=== PATIENT | female | born 1975 | race Caucasian/White ===

== ENCOUNTER → 2018-06-29 14:13 | Emergency (ER) | payer OTHER ==
[~2018-06-29 14:13] MED LIST: Cyclobenzaprine TAB* 10 MG PO ONE
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
[2018-06-29 17:28] LABS: Urine Appearance Cloudy; Urine Bacteria Absent (Absent); Urine Bilirubin Negative (Negative); Urine Blood Negative (Negative); Urine Color Straw; Urine Glucose Negative (Negative); Urine Ketones Negative (Negative); Urine Nitrite Negative (Negative); Urine Protein Negative (Negative); Urine Red Blood Cell 1+(3-5/hpf) (Absent); Urine Specific Gravity 1.005 (1.010-1.030); Urine Squamous Epithelial Cell Present (Absent); Urine Urobilinogen Negative (Negative); Urine White Blood Cell Trace(0-5/hpf) (Absent)
[2018-06-29 17:44] LABS: Barbiturates Urine Screen Presumptive Positive (None Detect); Benzodiazepine Urine Screen Presumptive Positive (None Detect); Urine Cannabinoids Screen None Detected (None Detect)
[2018-06-29 18:39] LABS: ABS Basophils 0 10^3/ul (0-0.2); ABS Eosinophils 0.5 10^3/ul (0-0.6); ABS Lymphocytes 3.3 10^3/ul (1.0-4.8); ABS Monocytes 0.8 10^3/ul (0-0.8); ABS Neutrophils 5.2 10^3/ul (1.5-7.7); ABS Nucleated RBC 0 10^3/ul; Eosinophil % 4.9 %; Hematocrit 38 % (35-47); Hemoglobin 13.2 g/dl (12.0-16.0); Lymphocyte % 34.1 %; Mean Corpuscular HGB Conc 34 g/dl (31-36); Mean Corpuscular Hemoglobin 28 pg (27-31); Mean Corpuscular Volume 81 fL (80-97); Mean Platelet Volume 7.1 fL (7.4-10.4); Nucleated Red Blood Cells % 0; Platelet Count 450 10^3/ul (150-450); Red Blood Count 4.72 10^6/ul (4.00-5.40); Red Cell Distribution Width 15 % (10.5-15); White Blood Count 9.8 10^3/ul (3.5-10.8)
[2018-06-29 18:44] LABS: INR 0.93 (0.77-1.02)
[2018-06-29 19:01] LABS: ALT 27 U/L (7-52); AST 20 U/L (13-39); Albumin 4.7 g/dL (3.2-5.2); Albumin/Globulin Ratio 1.9 (1-3); Alkaline Phosphatase 78 U/L (34-104); Amylase 52 U/L (29-103); Anion Gap 9 mmol/L (2-11); BUN/Creatinine Ratio 18.2 (8-20); Blood Urea Nitrogen 12 mg/dL (6-24); CO2 Carbon Dioxide 28 mmol/L (22-32); Calcium 9.2 mg/dL (8.6-10.3); Chloride 104 mmol/L (101-111); Creatine Kinase 50 U/L (10-223); EGFR Non-African American 99.2 (>60); Globulin 2.5 g/dL (2-4); Glucose 92 mg/dL (70-100); Potassium 3.6 mmol/L (3.5-5.0); Sodium 141 mmol/L (135-145); Total Protein 7.2 g/dL (6.4-8.9)
[2018-06-29 19:06] LABS: Alcohol < 10 mg/dL (<10); HCG Pregnancy 0.82 mIU/mL
[2018-06-29 21:23] VITALS: BP 146/98
--- NOTE | 2018-07-02 11:10 | PN ---
Progress Note - Progress Note Date of Service: 06/29/18 Note: Urine culture final grew e. coli 10-25,000 This is low colony count. Patient will not be placed on abx at this time
== END | disposition home or self-care (01) ==
LOC: ED 14:13
DX: S16.1XXA Strain of muscle, fascia and tendon at neck level, initial encounter (principal); S06.0X9A Concussion with loss of consciousness of unspecified duration, initial encounter; T14.8XXA Other injury of unspecified body region, initial encounter; Y92.9 Unspecified place or not applicable; V47.5XXA Car driver injured in collision with fixed or stationary object in traffic accident, initial encounter; Y92.89 Other specified places as the place of occurrence of the external cause; F41.9 Anxiety disorder, unspecified
CPT/HCPCS: 36415; 70450; 71046; 72125; 80053; 80307; 80320; 81003; 81015; 82150; 82550; 83605; 83690; 84484; 84702; 85025; 85610; 87077; 87086; 87186; 93005; 99283; A9270-GY; G0480

== ENCOUNTER 2018-07-29 21:01 | Emergency (ER) | payer OTHER ==
[2018-07-29 21:16] VITALS: BP 126/84
--- NOTE | 2018-07-29 21:41 | UC ---
Shoulder Pain HPI - HPI Summary HPI Summary: Patient twisted her left shoulder putting her coat on. she felt a twang of pain in the posterior aspect of the left shoulder. she has good ROM, but painful with ext and int rotation and reaching behind her back. - History of Current Complaint Chief Complaint: UCUpperExtremity Stated Complaint: L ARM PAIN Time Seen by Provider: 07/29/18 21:12 Hx Obtained From: Patient Hx Last Menstrual Period: 07/08/2018 ?: No Onset/Duration: Sudden Onset, Lasting Hours Timing: Constant Severity Initially: Moderate Severity Currently: Moderate Pain Intensity: 5 Character: Throbbing, Stiffness Aggravating Factor(s): Movement, Internal Rotation, External Rotation Alleviating Factor(s): Nothing - Allergies/Home Medications Allergies/Adverse Reactions: Allergies Allergy/AdvReac Type Severity Reaction Status Date / Time influenza virus vaccine tvs Allergy Hives Verified 07/29/18 21:18 (65 yr and up) [From Endorse For A Cause (65yr+)(PF)] Sulfa (Sulfonamide Allergy Hives Verified 07/29/18 21:17 Antibiotics) vaccine adjuvant emulsion Allergy Hives Verified 07/29/18 21:18 [id number].1 [From Cinematiquead (65yr+)(PF)] Home Medications: Home Medications Acetaminophen [Tylenol] 07/29/18 [History] Ibuprofen 200 mg PO 07/29/18 [History] PMH/Surg Hx/FS Hx/Imm Hx Previously Healthy: Yes - Surgical History Surgical History: Yes Surgery Procedure, Year, and Place: gall bladder 2017 - Family History Known Family History: Positive: Other Family History: Breast CA - Social History Alcohol Use: None Substance Use Type: None Smoking Status (MU): Never Smoked Tobacco Review of Systems All Other Systems Reviewed And Are Negative: Yes Constitutional: Positive: Negative Skin: Positive: Negative Eyes: Positive: Negative ENT: Positive: Negative Respiratory: Positive: Negative Cardiovascular: Positive: Negative Gastrointestinal: Positive: Negative Genitourinary: Positive: Negative Motor: Positive: Negative Neurovascular: Positive: Negative Musculoskeletal: Positive: Arthralgia, Decreased ROM, Myalgia Neurological: Positive: Negative Psychological: Positive: Negative Is Patient Immunocompromised?: No Physical Exam Triage Information Reviewed: Yes Appearance: Well-Appearing, Well-Nourished, Pain Distress Vital Signs: Initial Vital Signs Temp 98.1 F 03/23/19 21:05 Pulse 75 07/29/18 21:05 Resp 16 07/29/18 21:05 BP 126/84 07/29/18 21:05 Pulse Ox 97 07/29/18 21:05 Vital Signs Reviewed: Yes Eye Exam: Normal ENT Exam: Normal Dental Exam: Normal Neck exam: Normal Respiratory Exam: Normal Cardiovascular Exam: Normal Abdominal Exam: Normal Musculoskeletal: Positive: Strength Intact, ROM Limited @ - in int rotation do to pain Neurological Exam: Normal Psychological Exam: Normal Skin Exam: Normal Shoulder Course/Dx - Course Course Of Treatment: hx obtained, exam performed ,meds reviewed, sling provided. reviewed conservative managment. If she is not improving, PT or follow up with ortho - Differential Dx/Diagnosis Differential Diagnosis/HQI/PQRI: Rotator Cuff Injury, Sprain, Strain Provider Diagnosis: Rotator cuff injury Discharge - Sign-Out/Discharge Documenting (check all that apply): Patient Departure All imaging exams completed and their final reports reviewed: No Studies - Discharge Plan Condition: Stable Disposition: HOME Patient Education Materials: Rotator Cuff Injury (ED) Referrals: Toshia Law MD [Primary Care Provider] - Ginger Grullon MD [Medical Doctor] - Additional Instructions: 1. use the sling to rest the shoulder 2. Continue with ibuprofen for pain 3. A few times a day, work the arm through Range of motion and easy stretching. 4. If not improving in the next week, follow up with ortho. - Billing Disposition and Condition Condition: STABLE Disposition: Home
== END 2018-07-29 21:58 | disposition home or self-care (01) ==
LOC: UCEAST 21:01
DX: S46.002A Unspecified injury of muscle(s) and tendon(s) of the rotator cuff of left shoulder, initial encounter (principal); Z88.7 Allergy status to serum and vaccine; Z88.2 Allergy status to sulfonamides; X50.0XXA Overexertion from strenuous movement or load, initial encounter; Y93.89 Activity, other specified; Y92.9 Unspecified place or not applicable
CPT/HCPCS: 99212; G0463

== ENCOUNTER 2018-11-30 20:23 | Emergency (ER) | payer OTHER ==
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
[2018-11-30 21:03] LABS: ABS Basophils 0.1 10^3/ul (0-0.2); ABS Eosinophils 0.4 10^3/ul (0-0.6); ABS Lymphocytes 3.5 10^3/ul (1.0-4.8); ABS Neutrophils 6.5 10^3/ul (1.5-7.7); Eosinophil % 3.3 %; Hematocrit 40 % (35-47); Hemoglobin 13.8 g/dL (12.0-16.0); Lymphocyte % 30.3 %; Mean Corpuscular HGB Conc 34 g/dL (31-36); Mean Corpuscular Hemoglobin 28 pg (27-31); Mean Corpuscular Volume 82 fL (80-97); Mean Platelet Volume 7.2 fL (7.4-10.4); Platelet Count 406 10^3/uL (150-450); Red Blood Count 4.89 10^6 /uL (3.70-4.87); Red Cell Distribution Width 13 % (10-15); White Blood Count 11.4 10^3/uL (3.5-10.8)
--- NOTE | 2018-11-30 21:03 | ED ---
HPI Chest Pain - HPI Summary HPI Summary: The patient is a 43 y/o F presenting to [facility] accompanied by with a chief complaint of sudden onset intermittent episodes of left anterior CP starting three days ago. She reports that when the symptoms started, she started to feel unwell while she was attempting to go to the bathroom and had sudden burning and sharp chest pain that radiates into the left arm. Later that night, she had diaphoresis, chills, and a fever, and then she was unable to move her lower extremities. She also has been experiencing generalized weakness. She additionally c/o palpitations, nausea, FELDMAN, left upper back pain, neck pain, and mild ataxia. She denies SOB, abd pain, vomiting, diarrhea, and rash. She notes over the weekend she had cramping in the BLE but that has since resolved. Her pain is currently rated 3/10 in severity. She attempted to use CBD oil to no relief. Moving from supine to erect aggravates her symptoms. Hx of HTN, anxiety. Nonsmoker, rare EtOH, no substance use. PCP is Dr. Law. - History of Current Complaint Chief Complaint: EDChestPainROMI Time Seen by Provider: 11/30/18 20:56 Hx Obtained From: Patient Hx Last Menstrual Period: 07/08/2018 Onset/Duration: Started Days Ago - three, Still Present Timing: Intermittent, Lasting Hours Initial Severity: Mild Current Severity: Moderate Pain Intensity: 3 Pain Scale Used: 0-10 Numeric Chest Pain Location: Left Anterior Chest Pain Radiates: Yes Chest Pain Radiates To:: Arm - left Character: Burning, Sharp/Stabbing Aggravating Factor(s): Movement - from supine to erect Alleviating Factor(s): Nothing - CBD oil to no relief Associated Signs and Symptoms: Positive: Chest Pain, Headaches, Weakness, Fever , Chills, Lightheadedness, Diaphoresis, Nausea, Palpitations, Back Pain - upper left, Calf Pain/Swelling - cramping, Other: - POSITIVE: difficulty moving lower extremities, neck pain, mild ataxia; NEGATIVE: diarrhea, rash. Negative: Shortness of Breath, Cough, Abdominal Pain, Vomiting - Allergy/Home Medications Allergies/Adverse Reactions: Allergies Allergy/AdvReac Type Severity Reaction Status Date / Time influenza virus vaccine tvs Allergy Hives Verified 11/30/18 20:35 2014- (65 yr and up) [From Fluad (65yr+)(PF)] Sulfa (Sulfonamide Allergy Hives Verified 11/30/18 20:35 Antibiotics) vaccine adjuvant emulsion Allergy Hives Verified 11/30/18 20:35 [id number] [From Fluad (65yr+)(PF)] PMH/Surg Hx/FS Hx/Imm Hx Endocrine/Hematology History: Denies: Hx Diabetes Cardiovascular History: Reports: Hx Hypertension Sensory History: Denies: Hx Legally Blind, Hx Deafness Opthamlomology History: Denies: Hx Legally Blind Neurological History: Denies: Hx Dementia Psychiatric History: Reports: Hx Anxiety - Cancer History Hx Chemotherapy: No Hx Radiation Therapy: No - Surgical History Surgery Procedure, Year, and Place: gall bladder 2017 - Immunization History Immunizations Up to Date: Yes Infectious Disease History: No Infectious Disease History: Denies: Traveled Outside the [place] in Last 30 Days - Family History Known Family History: Positive: Other - breast CA, ulcerative colitis - Social History Alcohol Use: Rare Substance Use Type: Reports: None Hx Tobacco Use: No Smoking Status (MU): Never Smoked Tobacco Review of Systems Positive: Fever - resolved, Chills, Skin Diaphoresis Positive: Chest Pain - dull with intermittent episodes of worsening sharpness Negative: Shortness Of Breath Positive: Nausea. Negative: Abdominal Pain, Vomiting, Diarrhea Positive: Other - difficulty moving lower extremities (resolved), cramping in BLE (resolved), left upper back pain, neck pain Negative: Rash Neurological: Other - mild ataxia Positive: Headache, Weakness - generalized All Other Systems Reviewed And Are Negative: Yes Physical Exam - Summary Physical Exam Summary: Appearance: Well-appearing, Well-nourished, lying in bed comfortably Skin: Warm, dry, no obvious rash Eyes: sclera anicteric, no conjunctival pallor ENT: mucous membranes moist, pharynx appears normal Neck: Supple, Pain with flexion or rotation of neck, Signs of mild meningismus Respiratory: Clear to auscultation, no signs of respiratory distress Cardiovascular: Normal S1, S2. No murmurs. Normal distal pulses in tibial and radial bilaterally. Abdomen: Soft, nontender, normal active bowel sounds present Musculoskeletal: Normal, Strength/ROM Intact Neurological: A&Ox3, awake and alert, mentation is normal, speech is fluent and appropriate Psychiatric: affect is normal, does not appear anxious or depressed Triage Information Reviewed: Yes Vital Signs On Initial Exam: Initial Vitals Temp Pulse Resp BP Pulse Ox 97.8 F 98 16 148/94 99 11/30/18 20:24 11/30/18 20:24 11/30/18 20:24 11/30/18 20:24 11/30/18 20:24 Vital Signs Reviewed: Yes Procedures - Lumbar Puncture Lumbar Paraspinals Position: Sitting Aseptic Technique: Local Anesthesia Anesthesia Used: 2.0% Lido - with epinephrine Spinal Needle Used: 22 Gauge Lumbar Puncture Note: Between L3-L4. Patient tolerated procedure well. Diagnostics - Vital Signs Vital Signs Temp Pulse Resp BP Pulse Ox 11/30/18 20:43 20 11/30/18 20:41 23 151/100 11/30/18 20:24 97.8 F 98 16 148/94 99 - Laboratory Result Diagrams: 11/30/18 20:56 11/30/18 20:56 Lab Statement: Any lab studies that have been ordered have been reviewed, and results considered in the medical decision making process. - EKG 2025 Cardiac Rate: NL - 97 BPM EKG Rhythm: Sinus Rhythm Summary of EKG Findings: NSR at 97 BPM, P waves, QRS complex, and T waves are within normal limits, T waves and intervals are normal, no ischemic changes. This is a normal EKG. Re-Evaluation - Re-Evaluation First Eval Re-Evaluation Time: 21:45 Comment: I performed the spinal tap. Patient tolerated procedure well. Chest Pain Course/Dx - Course Course Of Treatment: The patient is a 43 y/o F presenting to [facility] accompanied by with a chief complaint of sudden onset intermittent episodes of burning and sharp left anterior CP starting three days ago that radiates into the left arm accompanied by diaphoresis, chills, fever, generalized weakness, neck pain, and difficulty moving lower extremities. She additionally c/o palpitations, nausea, FELDMAN, left upper back pain, and mild ataxia. She denies SOB , abd pain, vomiting, diarrhea, and rash. She notes over the weekend she had cramping in the BLE but that has since resolved. No previous similar episodes. Upon physical exam, the patient is an anxious appearing woman in mild acute distress, and the neck has pain with flexion or rotation with signs of mild meningismus. Blood work reveals WBCs of 11.4, RBCs of 4.89, MPV of 7.2, abs monos of 1.0, BUN/Creatinine ratio of 21.8, and glucose of 124. First troponin of 0.00. The lumbar puncture was performed between L3 and L4 using local anesthesia 2% lidocaine with epinephrine; she tolerated procedure well. EKG reveals NSR at 97 bpm. The patient is a sign-out from Dr. Nacho Sky MD, to Dr. Darwin Munoz MD, at change of shift at 2200 on 11/30/2018, pending CSF results and disposition. She is diagnosed with viral syndrome. - Diagnoses Provider Diagnoses: Weakness, Syncope Discharge - Sign-Out/Discharge Documenting (check all that apply): Sign-Out Patient Signing out patient TO: Darwin Munoz - Patient is sign-out at shift change at 2200 pending CSF results and disposition. Patient Received Moderate/Deep Sedation with Procedure: No - Discharge Plan Condition: Stable Disposition: HOME Patient Education Materials: Syncope (ED), Weakness (ED) Forms: *Work Release Referrals: [facility] [Outside] - 2 Days Toshia Law MD [Primary Care Provider] - 2 Days Additional Instructions: Please follow up with your PCP and [facility] in 2-3 days and return to the emergency department for any new or worsening symptoms. - Billing Disposition and Condition Condition: STABLE Disposition: Home - Attestation Statements Document Initiated by Pam: Yes Documenting Scribe: Merry Desir Provider For Whom Pam is Documenting (Include Credential): Dr. Nacho Sky MD Scribe Attestation: Merry Ansari scribed for Dr. Nacho Sky MD on 12/01/18 at 1242. Scribe Documentation Reviewed: Yes Provider Attestation: The documentation as recorded by the Merry haynes accurately reflects the service I personally performed and the decisions made by me, Dr. Nacho Sky MD Status of Scribdaniele Document: Viewed
[2018-11-30 21:11] LABS: INR 0.93 (0.82-1.09)
[2018-11-30] MEDS ORDERED: Lorazepam PYXIS KEY PRN (21:18)
[2018-11-30] MEDS ORDERED: LORazepam INJ* 2 MG/ML 1 ML VIAL IV PUSH ONE (21:18)
[2018-11-30 21:21] LABS: Albumin 4.2 g/dL (3.2-5.2); Albumin/Globulin Ratio 1.6 (1-3); BUN/Creatinine Ratio 21.8 (8-20); Calcium 9.2 mg/dL (8.6-10.3); EGFR African American 98.5 (>60); EGFR Non-African American 81.4 (>60); Globulin 2.6 g/dL (2-4); Potassium 3.8 mmol/L (3.5-5.0); Total Bilirubin 0.5 mg/dL (0.2-1.0); Total Protein 6.8 g/dL (6.4-8.9)
[2018-11-30 22:27] LABS: Body Fluid Source Cerebral Spinal
--- NOTE | 2018-11-30 22:29 | ED ---
Progress - Progress Note Progress Note: This patient was signed out from Dr. Sky to Dr. Munoz at shift change at 2200 on 11/30/18, pending disposition, awaiting CSF results. CSF results are normal. The patients would like to wait for Lyme results before being discharged. Pt is a sign out from Dr. Munoz to Dr. Medina. Re-Evaluation - Re-Evaluation First Eval Comment: Went to check on pt, however she was asleep. said she came in for Muscle aches, and joint pain. She had no exposure to ticks, no long grass in her flower garden. Second Eval Re-Evaluation Time: 06:36 Comment: Pt still doesn't feel well. Third Eval Re-Evaluation Time: 06:50 Comment: Wants to wait for Lyme test. Fatigue has been occuring for month. Pt will recieve another liter of fluid. Course/Dx - Course Course Of Treatment: The patient is a 43 y/o F with head ache and neck stiffness. Dr. Sky performed a lumbar puncture, and has not started treatment for meningitis, because he believes pt is low risk. After recieveing CSF fluids, disposition will be decided. As the CSF had no white cells, clear colorless, not consistent with meningitis. Lyme screen ordered. At second re- eval pt still did not feel well. Pt is a sign out to Dr. Medina pending lyme screen results. - Diagnoses Provider Diagnoses: Viral syndrome Discharge - Sign-Out/Discharge Documenting (check all that apply): Sign-Out Patient Signing out patient TO: Faraz Medina - Sign out to Dr. Smart at 0700 on pending lyme screen results. Receiving patient FROM: Darwin Munzo - Discharge Plan Referrals: Toshia Law MD [Primary Care Provider] - - Attestation Statements Document Initiated by Scribe: Yes Documenting Scribe: Billie Vasquez Provider For Whom Scribe is Documenting (Include Credential): Dr. Darwin Munoz MD Scribe Attestation: Billie Ansari, scribed for Dr. Darwin Munoz MD on 12/01/18 at 0711. Status of Scribe Document: Ready
[2018-11-30 22:42] LABS: CSF Glucose 68 mg/dL (40-70)
[2018-12-01] MEDS ORDERED: Ketorolac INJ* 30 MG/ML 1 ML VIAL IV PUSH ONE (06:59)
[2018-12-01] MEDS ORDERED: Lactated Ringers 1000 ML Bag* 1,000 ML IV SCH (07:00)
--- NOTE | 2018-12-01 07:10 | ED ---
Progress - Progress Note Progress Note: This patient was signed out from Dr. Munoz to Dr. Smart at shift change at 0700 on 12/01/18, pending Lyme test results. The pt will be re-evaluated after the results are obtained. Re-Evaluation - Re-Evaluation First Eval Re-Evaluation Time: 09:00 Change: Improved Comment: Pt stated that her CP and SOB was resolved. Course/Dx - Course Course Of Treatment: This patient was signed out from Dr. Munoz to Dr. Medina at shift change at 0700 on 12/01/18, pending Lyme test results. The pt will be re-evaluated after the results are obtained. The pt had a re-eval at 0900 and she reported CP and SOB resolved. Had syncopal spells when getting up from the bathroom. Headache, sweats, chills, no tick exposures, all labs are negative. At the time of her discharge her lyme test is pending. Dx: is syncope and weakness. Follow up with [facility] in 2-3 days to be paired with a PCP. - Diagnoses Provider Diagnoses: Weakness, Syncope Is Visit Related: No Discharge - Sign-Out/Discharge Documenting (check all that apply): Patient Departure - discharge, Receiving Sign-Out Receiving patient FROM: Darwin Munoz Patient Received Moderate/Deep Sedation with Procedure: No - Discharge Plan Condition: Stable Disposition: HOME Patient Education Materials: Weakness (ED), Syncope (ED) Forms: *Work Release Referrals: Toshia Law MD [Primary Care Provider] - 2 Days [facility] [Outside] - 2 Days Additional Instructions: Please follow up with your PCP and [facility] in 2-3 days and return to the emergency department for any new or worsening symptoms. - Attestation Statements Document Initiated by Scribe: Yes Documenting Scribe: Forrest Flor Provider For Whom Scribe is Documenting (Include Credential): Faraz Medina MD Scribe Attestation: Forrest Ansari, scribed for Faraz Medina MD on 12/01/18 at 0959. Status of Scribe Document: Ready
[2018-12-01 08:38] LABS: Urine Appearance Cloudy; Urine Bilirubin Negative (Negative); Urine Blood Negative (Negative); Urine Color Yellow; Urine Glucose Negative (Negative); Urine Ketones Negative (Negative); Urine Nitrite Negative (Negative); Urine Protein Negative (Negative); Urine Urobilinogen Negative (Negative)
[2018-12-01 08:43] LABS: C Reactive Protein 9.45 mg/L (<8.01)
[2018-12-01] MEDS ORDERED: NS 0.9% 1000 ML** 1,000 ML IV.FLUID IV ONE (10:00)
[2018-12-01 11:49] VITALS: BP 108/77
== END 2018-12-01 11:00 | disposition home or self-care (01) ==
LOC: ED 20:23
DX: B34.9 Viral infection, unspecified (principal); R53.1 Weakness; R55 Syncope and collapse; I10 Essential (primary) hypertension; F41.9 Anxiety disorder, unspecified; Z88.2 Allergy status to sulfonamides; Z88.7 Allergy status to serum and vaccine
CPT/HCPCS: 36415; 80053; 81003; 82945; 84157; 84484; 85025; 85610; 86140; 86618; 87070; 87205; 89051; 93005; 96361; 96374; 96375; 99284; J1885; J2060